=== PATIENT | male | born 2000 | race Caucasian/White ===

== ENCOUNTER 2019-07-08 10:10 | Inpatient (IN) | payer OTHER ==
[~2019-07-08] VITALS: Ht 185.4 cm; Wt 70.5 kg
[2019-07-08 10:52] LABS: HEMATOCRIT 41.2 % (42.0-52.0); HEMOGLOBIN 14.6 g/dl (13.5-17.5); MEAN CORPUSCULAR HEMOGLOBIN 31.2 pg (27.0-33.0); MEAN CORPUSCULAR HGB CONC 35.4 g/dl (32.0-36.5); PLATELET COUNT, AUTOMATED 241 10^3/uL (150-450); RED BLOOD COUNT 4.68 10^6/uL (4.30-6.10); WHITE BLOOD COUNT 6.8 10^3/uL (4.0-10.0)
[2019-07-08 11:22] LABS: ACETAMINOPHEN LEVEL < 2.0 UG/ML (10.0-30.0); ALT/SGPT 20 U/L (12-78); BILIRUBIN,DIRECT 0.2 MG/DL (0.0-0.2); BILIRUBIN,TOTAL 0.6 MG/DL (0.2-1.0); BLOOD UREA NITROGEN 12 MG/DL (7-18); CALCIUM LEVEL 8.8 MG/DL (8.5-10.1); CARBON DIOXIDE LEVEL 28 MEQ/L (21-32); CHLORIDE LEVEL 106 MEQ/L (98-107); CREATININE FOR GFR 0.93 MG/DL (0.70-1.30); ETHYL ALCOHOL (ETHANOL) < 0.003 % (0.000-0.010); GLUCOSE, FASTING 82 MG/DL (70-100); POTASSIUM SERUM 4.1 MEQ/L (3.5-5.1); SALICYLATE LEVEL < 1.7 MG/DL (5.0-30.0); SODIUM LEVEL 140 MEQ/L (136-145); THYROID STIMULATING HORMONE 0.689 uIU/ML (0.463-3.98); TOTAL PROTEIN 7.1 GM/DL (6.4-8.2)
[2019-07-08 11:26] LABS: AMPHETAMINES LEVEL URINE NEGATIVE (NEGATIVE); BARBITURATES URINE NEGATIVE (NEGATIVE); BENZODIAZEPINES URINE NEGATIVE (NEGATIVE); CANNABINOIDS URINE NEGATIVE (NEGATIVE); COCAINE METABOLITE URINE NEGATIVE (NEGATIVE); METHADONE URINE NEGATIVE (NEGATIVE); OPIATES URINE NEGATIVE (NEGATIVE); PHENCYCLIDINE URINE NEGATIVE (NEGATIVE)
[2019-07-08] MEDS ORDERED: traZODone 50 MG TAB PO PRN (17:45)
[2019-07-08] MEDS ORDERED: MOM 30ML SUSPENSION UDC PO PRN (17:45)
[2019-07-08] MEDS ORDERED: ACETAMINOPHEN TAB 650MG DOSE (2X325MG) PO PRN (17:45)
[2019-07-08] MEDS ORDERED: MAALOX 30 ML SUSP *UDC PO PRN (17:45)
[2019-07-08 21:16] VITALS: BP 147/80
[2019-07-09 06:22] VITALS: BP 138/66
--- NOTE | 2019-07-09 10:14 | MHDSPDOC ---
[facility] Discharge Summary Discharge Summary DATE OF ADMISSION: July 08, 2019 at 17:33 DATE OF DISCHARGE:07/09/19 Please see h/p for same day discharge Vital Signs/I&Os Vital Signs Date Time Temp Pulse Resp B/P (MAP) Pulse Ox O2 Delivery O2 Flow Rate FiO2 07/09/19 06:22 99.1 78 16 138/66 (90) 98 Room Air Laboratory Data Labs 24H Laboratory Tests 2 07/08/19 10:35: Nucleated Red Blood Cells % (auto) 0.0, Anion Gap 6L, Calcium Level 8.8, Total Bilirubin 0.6, Direct Bilirubin 0.2, Aspartate Amino Transf (AST/SGOT) 32, Alanine Aminotransferase (ALT/SGPT) 20, Alkaline Phosphatase 75, Total Protein 7.1, Albumin 4.0, Albumin/Globulin Ratio 1.3, Thyroid Stimulating Hormone (TSH) 0.689, Salicylates Level < 1.7L, Acetaminophen Level < 2.0L, Ethyl Alcohol Level < 0.003 07/08/19 10:36: Urine Opiates Screen NEGATIVE, Urine Methadone Screen NEGATIVE, Urine Barbiturates Screen NEGATIVE, Urine Phencyclidine Screen NEGATIVE, Urine Amphetamines Screen NEGATIVE, Urine Benzodiazepines Screen NEGATIVE, Urine Cocaine Metabolite Screen NEGATIVE, Urine Cannabinoids Screen NEGATIVE CBC/BMP Laboratory Tests 07/08/19 10:35 Medications No Active Prescriptions or Reported Meds Allergies Coded Allergies: No Known Allergies (Unverified , 07/08/19) JUAN FRANCISCO ELIZABETH DO July 09, 2019 10:14
--- NOTE | 2019-07-09 10:14 | MHHPEPDOC ---
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 When he presented he had stated that these were a means of getting attention and to attempt to convince his chain of command that he was no longer fit to be in the so that he could get out of the . When the patient was met with he stated that he had not been necessarily depressed, although he has some stress related to the and some insomnia related to anxiety as he reports he does not like how he is treated in the ilitary feels that it is unfair. He reports he had no intention of acting on any particular thoughts and had no thoughts in general, but had made the statements of specific means of getting out of the hoping to be met bordered. Review Of Systems Depression: As above. Anxiety: As above. Missy: The patient denies any episodes of euphoria/dysphoria associated with decreased need for sleep, hedonism, talkatively or impulsivity lasting longer than 5 days. Psychotic: The patient denies any experiences of auditory or visual hallucinations. They deny any episodes of paranoia or delusional thinking in the past Trauma: The patient denies any traumatic events associated with nightmares or intrusive thoughts. Borderline: The patient screens negative for borderline personality at this junction. Past Psychiatric History Has no psychiatric history, no history of medication trials or other follow up at this time. Allergies Please see below. Family Psychiatric History The patient denies/is unaware any history of mental health history including addictions and suicide. Social History The patient grew up in the [place]. He reports no history of trauma or abuse. Generally has served in the for 1 year. Substance Abuse History The patient denies any excessive alcohol use, tobacco or illicit drug use, denies history of substance use treatment. Medical History Patient has no significant past medical history. Mental Status Examination General: Well dressed with good hygiene Speech: Spontaneous and fluid Thought processes: Linear and logical MSK: Smooth and coordinated gait, no signs of tremors or involuntary orofacial movements Thought content: Future orientated Abstract reasoning, and computation: Intact Description of associations: Intact Description of abnormal or psychotic thoughts: Denies any suicidal or homicidal ideation. Denies any auditory or visual hallucinations. Does not appear to be responding to internal stimuli. Does not appear to be endorsing any bizarre or paranoid ideation. Judgment: Chronically limited. Insight: Likely chronically limited. Orientation: Alert and orientated 3 Cognition: Grossly normal Recent and remote memory: Intact Attention span and concentration: Intact Fund of knowledge: Adequate Mood: "okay" Affect: Euthymic with a full range Diagnoses Adjustment disorder with disturbance of conduct. Malingering. Assessment and Plan The patient a 18-year-old young man who presents likely in a state of adjustment with difficulty coping with his new job in the . Presents stating that he is suicidal to his chain of command in order to try to convince them, by his own admission he had no intention of hurting himself and the statements were manufactured in order to prevent him from having to serve in the any longer. The patient does not meet involuntary criteria as he has been denying suicidal and homicidal ideation through the entirety of his observation with us at this time. He also admits to his symptoms being manufactured further confirming lack of sincerity. He declines further want to stay and does not meet involuntary criteria as mentioned above due to the factors elaborated. He will be discharged in [facility] james. Disposition Discharge to [facility]. Problem List 1. Ineffective coping. Initial Treatment Plan 1. Patient was admitted on a 9.39 legal status. 2. Complete history was obtained. 3. With patients permission, family will be contacted and database will be expanded. 4. Patients medication regimen will be reviewed and changed accordingly. 5. Patient will be provided with protected environment. 6. Patient will be treated with individual, group, and milieu therapies. 7. Patient will receive supportive psych-education. 8. Discharge planning will commence immediately. 9. Outpatient follow-up treatment will be strongly recommended. 10. The initial treatment plan will focus initially on: Estimated Length Of Stay 1 day. Time Spent 70 minutes with greater than 50% of time spent on counseling/coordination of care. Vital Signs Vital Signs Date Time Temp Pulse Resp B/P (MAP) Pulse Ox O2 Delivery O2 Flow Rate FiO2 07/09/19 06:22 99.1 78 16 138/66 (90) 98 Room Air Laboratory Data 24H Labs Laboratory Tests 2 07/08/19 10:35: Nucleated Red Blood Cells % (auto) 0.0, Anion Gap 6L, Calcium Level 8.8, Total Bilirubin 0.6, Direct Bilirubin 0.2, Aspartate Amino Transf (AST/SGOT) 32, Alanine Aminotransferase (ALT/SGPT) 20, Alkaline Phosphatase 75, Total Protein 7.1, Albumin 4.0, Albumin/Globulin Ratio 1.3, Thyroid Stimulating Hormone (TSH) 0.689, Salicylates Level < 1.7L, Acetaminophen Level < 2.0L, Ethyl Alcohol Level < 0.003 07/08/19 10:36: Urine Opiates Screen NEGATIVE, Urine Methadone Screen NEGATIVE, Urine Barbiturates Screen NEGATIVE, Urine Phencyclidine Screen NEGATIVE, Urine Amphetamines Screen NEGATIVE, Urine Benzodiazepines Screen NEGATIVE, Urine Cocaine Metabolite Screen NEGATIVE, Urine Cannabinoids Screen NEGATIVE CBC/BMP Laboratory Tests 07/08/19 10:35 Medications No Active Prescriptions or Reported Meds Allergies Coded Allergies: No Known Allergies (Unverified , 07/08/19) JUAN FRANCISCO ELIZABETH DO July 09, 2019 10:14
--- NOTE | 2019-07-09 13:31 | HPEPDOC ---
General Date of Admission July 08, 2019 at 17:33 Date of Service: July 09, 2019 Chief Complaint The patient is a 18-year-old male admitted with a reason for visit of Unspecified Depression. Source: Patient Exam Limitations: No limitations Timing/Duration: Unsure Severity: Mild History of Present Illness HISTORY OF PRESENT ILLNESS: Patient is 18 years old male w/o significant past medical history, who was admitted in the hospital with anxiety and depression. During my interview patient denied any suicidal ideation He denied any cardiovascular problem, breathing problem, GI problem or dysuria. He denies fever, chills, nausea, vomiting, shortness of breath, palpitations, diarrhea or dysuria Home Medications No Active Prescriptions or Reported Meds Allergies Coded Allergies: No Known Allergies (Unverified , 07/08/19) Past Medical History Medical History None Family History Patient stated that parents are healthy Social History * Smoker: Denies Alcohol: Denies Drugs: denies A-FIB/CHADSVASC A-FIB History Current/History of A-Fib/PAF?: No Current PO Anticoag Therapy: No Review of Systems Constitutional: Denies: Chills, Fever, Night Sweats Eyes: Denies: Pain ENT: Denies: Head Aches Skin: Denies: Rash Pulmonary: Denies: Dyspnea Cardiovascular: Denies: Chest Pain Gastrointestinal: Denies: Nausea Genitourinary: Denies: Dysuria Hematologic: Denies: Bruising Endocrine: Denies: Polydipsia Musculoskeletal: Denies: Neck Pain Neurological: Denies: Weakness, Numbness Psych: Reports: Anxiety, Depression Physical Examination General Exam: Positive: Alert, Cooperative, Mild Distress, Other; Negative: No Acute Distress Eye Exam: Positive: PERRLA ENT Exam: Positive: Atraumatic Neck Exam: Positive: Supple; Negative: JVD Chest Exam: Positive: Clear to auscultation Heart Exam: Positive: Rate Normal Telemetry: Positive: No significant arrhythmia Abdomen Exam: Positive: Normal bowel sounds Extremity Exam: Negative: Clubbing, Cyanosis Skin Exam: Positive: Nl turgor and temperature Neuro Exam: Positive: Normal Gait, Strength at 5/5 X4 ext, Cranial Nerves 3-12 NL Psych Exam: Positive: Mental status NL, Anxiety, Memory Intact, Oriented x 3, Other; Negative: Mood NL Vital Signs Vital Signs Date Time Temp Pulse Resp B/P (MAP) Pulse Ox O2 Delivery O2 Flow Rate FiO2 5/21/20 06:22 99.1 78 16 138/66 (90) 98 Room Air Assessment/Plan Patient is 18 years old male w/o significant past medical history, who was admitted in the hospital with anxiety and depression. He denied any cardiovascular problem, breathing problem, GI problem or dysuria. He denies fever, chills, nausea, vomiting, shortness of breath, palpitations, diarrhea or dysuria Problems (1) Depression with suicidal ideation Status: Acute Problem Text: We will defer treatment of depression to psych team Plan / VTE VTE Prophylaxis Ordered?: No VTE Exclusion Mechanical Proph: Low Risk for VTE SUGEY ALEJO DO July 09, 2019 13:31
== END 2019-07-09 13:30 | disposition home or self-care (01) | DRG 882 ==
LOC: M ED 10:10 → M ED INP 17:33 → M PSY 20:55
PROVIDERS: ADMIT Psychiatry & Neurology Addiction Medicine; ATTEND Psychiatry & Neurology Addiction Medicine
DX: F43.24 Adjustment disorder with disturbance of conduct (principal); R45.851 Suicidal ideations; Z76.5 Malingerer [conscious simulation]

== ENCOUNTER 2019-12-01 11:33 | Emergency (ER) | payer OTHER ==
[~2019-12-01] VITALS: Ht 185.4 cm; Wt 71.9 kg
[2019-12-01] MEDS ORDERED: KETOROLAC 60MG 2ML VIAL IM ONE (13:15)
[2019-12-01] MEDS ORDERED: methocarbamoL 750 MG TAB PO ONE (13:15)
[2019-12-01] MEDS ORDERED: KETO10TAB PO (14:06)
[2019-12-01] MEDS ORDERED: ROBA750T4 PO (14:06)
[2019-12-01 14:18] VITALS: BP 126/63
== END 2019-12-01 14:19 | disposition home or self-care (01) ==
LOC: M ED 11:33
DX: S33.5XXA Sprain of ligaments of lumbar spine, initial encounter (principal); X58.XXXA Exposure to other specified factors, initial encounter; Y92.9 Unspecified place or not applicable; Y93.9 Activity, unspecified; Y99.9 Unspecified external cause status
CPT/HCPCS: 96372; 99283; J1885